=== PATIENT | female | born 1980 | race African-American/Black ===

== ENCOUNTER 2018-02-01 06:57 | Emergency (ER) | payer OTHER ==
[~2018-02-01] VITALS: Ht 165.1 cm; Wt 89.8 kg
[~2018-02-01 06:57] MED LIST: ADVAIR 500-501 EACH INH; NORCO 5-325 TA1 EACH PO; PENICILLIN V P500 MG PO; PREDNISONE 20 M20 M1 PO; PROAIR HFA8.5 GM IH; PROVENTIL HFA6.7 G1 INH
[2018-02-01] MEDS ORDERED: PROVENTIL HFA6.7 G1 INH (08:09)
[2018-02-01] MEDS ORDERED: PREDNISONE50 MG PO (08:09)
[2018-02-01] MEDS ORDERED: TUSSIONEX PENN115 ML PO (08:09)
[2018-02-01 08:28] VITALS: BP 127/73
== END 2018-02-01 08:30 | disposition home or self-care (01) ==
LOC: ER 06:57
DX: J04.0 Acute laryngitis (principal); J45.909 Unspecified asthma, uncomplicated; Z88.6 Allergy status to analgesic agent

== ENCOUNTER 2018-02-06 07:20 | Emergency (ER) | payer OTHER ==
[~2018-02-06] VITALS: Ht 165.1 cm; Wt 89.8 kg
[~2018-02-06 07:20] MED LIST changes: +PREDNISONE50 MG PO; +TUSSIONEX PENN115 ML PO
[2018-02-06] MEDS ORDERED: ADVAIR HFA 230M12 GM INH (08:05)
[2018-02-06] MEDS ORDERED: NORCO 5-325 TA1 EACH PO (09:10)
[2018-02-06 09:28] VITALS: BP 133/75
== END 2018-02-06 09:30 | disposition home or self-care (01) ==
LOC: ER 07:20
DX: S51.832A Puncture wound without foreign body of left forearm, initial encounter (principal); J45.909 Unspecified asthma, uncomplicated; Z88.6 Allergy status to analgesic agent; W01.0XXA Fall on same level from slipping, tripping and stumbling without subsequent striking against object, initial encounter; Y93.89 Activity, other specified; Y92.89 Other specified places as the place of occurrence of the external cause; Y99.8 Other external cause status

== ENCOUNTER 2018-02-15 21:52 | Emergency (ER) | payer OTHER ==
[~2018-02-15] VITALS: Ht 165.1 cm; Wt 89.8 kg
[~2018-02-15 21:52] MED LIST changes: +ADVAIR HFA 230M12 GM INH
[2018-02-15 21:59] VITALS: BP 139/99
== END 2018-02-15 22:08 | disposition home or self-care (01) ==
LOC: ER 21:52
DX: S41.112D Laceration without foreign body of left upper arm, subsequent encounter (principal); J45.909 Unspecified asthma, uncomplicated; Z88.6 Allergy status to analgesic agent; W18.39XD Other fall on same level, subsequent encounter

== ENCOUNTER 2020-02-21 04:55 | Emergency (ER) | payer OTHER ==
[~2020-02-21] VITALS: Ht 165.1 cm; Wt 90.7 kg
[2020-02-21] MEDS ORDERED: SYMBICORT160 MCG/4. INH (05:00)
[2020-02-21] MEDS ORDERED: PREDNISONE50 MG PO (05:14)
[2020-02-21 06:56] VITALS: BP 132/68
== END 2020-02-21 06:57 | disposition home or self-care (01) ==
LOC: ER 04:55
DX: J45.909 Unspecified asthma, uncomplicated (principal); Z87.891 Personal history of nicotine dependence; Z79.899 Other long term (current) drug therapy; Z88.6 Allergy status to analgesic agent; Z88.8 Allergy status to other drugs, medicaments and biological substances